=== PATIENT | female | born 1985 | race Caucasian/White ===

== ENCOUNTER 2024-11-09 17:43 | Emergency (ER) | payer BC, SELFPAY ==
[2024-11-09 17:50] VITALS: BP 149/81; PULSE 83; RESP 18; TEMP 36.9; O2SAT 96; BMI 33.6
--- NOTE | 2024-11-09 20:04 | ED_ITS ---
HPI - Skin/Abscess/Foreign Bdy General Chief complaint: Skin/Abscess/Foreign Body Stated complaint: states needs help draining seroma Time Seen by Provider: 11/09/24 20:04 Source: patient Mode of arrival: Ambulatory Limitations: no limitations History of Present Illness HPI narrative: 39-year-old female without any significant past medical history comes into the ED from home for evaluation of swelling to her abdomen. She states that 6 weeks ago she had a tummy tuck and breast augmentation in [place], she states that she has a seroma within her abdomen that she states she needs strain, she denies any actual pain but states that she feels decreased sensation to that area. She denies any other symptoms at this time. She states that she did go to an outside hospital got a bunch of lab work and images, she states that they referred her to a general surgeon to get it drained, she states that she was worried/wanted the seroma to be gone within the next 5 days therefore came here to see if it could be drained. She denies any other symptoms at this time Review of Systems Review of Systems Narrative: General: Denies fever, chills, weight loss HEENT: Denies headache, eye drainage, eye irritation, head trauma, sore throat, voice change Cardiovascular: Denies any chest pain, palpitations, tachycardia Respiratory: Denies any shortness of breath, cough, wheeze, stridor GI/: Swelling/distention to the abdomen, Denies any abdominal pain, nausea, vomiting, diarrhea, bright red blood per rectum, melanotic stools, urinary frequency, urinary retention, dysuria, hematuria MSK: Denies any joint pain, muscle pains, swelling Skin: Denies any rashes, lesions, discoloration Neuro: Denies any headache, lightheadedness, dizziness, fainting, weakness Psych: Denies SI/HI Patient History Social History Smoking Status: Current some day smoker Smoking Status: Current some day smoker tobacco type: vaping Exam Narrative Exam Narrative: General: Cooperative, well-developed, not in acute distress HEENT: Normocephalic, atraumatic, PERRLA, normal sclera, eyelids normal Neck: Active full range of motion, atraumatic Chest: Normal to inspection, negative crepitus, no overlying erythema ecchymosis Respiratory: Normal respiratory effort, not in acute respiratory distress, clear to auscultation bilaterally negative cough, wheeze, tachypnea, rhonchi, rales Cardiology: Regular rate rhythm negative gallop, murmur, rubs GI/: Patient with well-healing scar to the lower abdomen consistent with a tummy tuck, there is mildly appreciable swelling to the suprapubic region just below the umbilicus but no tenderness to palpation no overlying erythema no streaking no purulent discharge, exam deferred MSK: Full active range of motion in all 4 extremities, atraumatic, no tenderness to palpation of any bony prominences Skin: No rashes or lesions noted Neuro: Alert awake oriented x3, moves all 4 extremities spontaneously, cranial nerves intact, able to answer all questions appropriately follows commands appropriately Psych: Cooperative, negative suicidal or homicidal ideations Initial Vital Signs Initial Vital Signs: Vital Signs Temperature 98.4 F 11/09/24 17:50 Pulse Rate 83 11/09/24 17:50 Respiratory Rate 18 11/09/24 17:50 Blood Pressure 149/81 H 11/09/24 17:50 Pulse Oximetry 96 11/09/24 17:50 Oxygen Delivery Method Room Air 11/09/24 17:50 Course Vital Signs Vital signs: Vital Signs - 8 hr 11/09/24 17:50 Temperature 98.4 F Pulse Rate 83 Respiratory Rate 18 Blood Pressure 149/81 H Pulse Oximetry 96 Oxygen Delivery Method Room Air MDM - Skin/Abscess/Foreign Bdy Differential Diagnosis Differential diagnosis: Likely other (Cellulitis, seroma) MDM Narrative Medical decision making narrative: 39-year-old female without any significant past medical history comes for abdominal distention swelling near the site of her recent tummy tuck. She states that this was a proximally 6 weeks ago in [place], she states that she went to an outside hospital got lab work and images performed and was told that she has a seroma and was referred to a general surgeon to get it possibly drain, however she states that she was wanting to see if she could get it drained today, she states that she has in event/presentation in the next 5 days and wants the seroma to be drained sooner than later. She denies any actual pain to the area, she states that she has been using her pelvic binder, she states that she did contact her general surgeon and states that he would be willing to do it but states that she does not need to have it emergently or urgently drained. On exam patient with well healing scars to the abdomen no signs of infection patient is well-appearing nontoxic, did review her outside hospital images and lab work which did not show signs of sepsis or sirs criteria. I offered patient repeat lab work and a CT scan of her abdomen to rule out any other potential causes of the swelling, however she states that she does not want this, she only came to see if we would drain it, she states that she would just like to follow up with her surgeon and have it drained in [place]. She was given strict return precautions she verbalized understanding of this and agrees to being discharged home with outpatient follow up Discharge Plan Departure Patient Disposition: Home Clinical Impression: Abdominal swelling Activity Restrictions/Additional Instructions: Please follow up with your surgeon and your primary care doctor Please read the discharge instructions sheet carefully and bring all papers to all doctor follow-up visits, as it may contain information that your doctor may want to see. Disease processes change and evolve, if your symptoms worsen or if you develop any new symptoms that are concerning to you please return for evaluation. Your evaluation today does not show any evidence of any life- threatening/serious illnesses requiring admission to the hospital or surgery. Please follow-up with your doctor for re-evaluation in approximately 1 day. Seek immediate medical attention for any worrisome symptoms. *If you do not have a primary care provider please contact the [facility] Resource line at [phone]. They will ask some questions about your medical history and help get you set up with a doctor in the community. Referrals: Miscellaneous,Doctor [Primary Care Provider] - Stand Alone Forms: Patient Portal/API/Survey
[2024-11-09 21:01] VITALS: BP 134/77; PULSE 70; O2SAT 100
== END 2024-11-09 21:01 | disposition home or self-care (01) ==
PROVIDERS: Emergency Provider Student in an Organized Health Care Education/Training Program
DX: R19.00 Intra-abdominal and pelvic swelling, mass and lump, unspecified site (principal)
CPT/HCPCS: 99281